=== PATIENT | female | born 1950 | race Caucasian/White ===

== ENCOUNTER → 2019-03-01 08:11 | Day surgery (SDC) | payer OTHER, MEDICARE ==
[~2019-03-01 08:11] MED LIST: Heparin 2 UNITS/ML IVPREMIX* 2,000 ML IV ONE; Heparin(*) 1000 UNIT/ML 10 ML VIAL CATH LAB IV ONE; Iohexol 350 (CONTRAST) 200 ML MDV IV ONE; Lidocaine 1% INJ* 10 MG/ML 30 ML SDV ONE; Midazolam* 1 MG/ML 5 ML VIAL (5 MG) ONE; NS 0.9% 1000 ML** 1,000 ML IV SCH; VERAPAMIL 2.5 MG/ML 2 ML VIAL ** 5 mg/2 ml ONE; fentaNYL* 50 MCG/ML 2 ML VIAL (100 MCG VIAL) ONE; nitroGLYCERIN DRIP* 25,000 MCG/250 ML BTL ONE
[2019-03-01 09:09] LABS: INR 0.97 (0.82-1.09)
[2019-03-01 09:10] LABS: BUN/Creatinine Ratio 16.7 (8-20); Calcium 10.1 mg/dL (8.6-10.3); EGFR African American 96.9 (>60); EGFR Non-African American 80.1 (>60); Potassium 3.9 mmol/L (3.5-5.0)
[2019-03-01 09:11] LABS: Hematocrit 35 % (35-47); Hemoglobin 11.5 g/dL (12.0-16.0); Mean Corpuscular HGB Conc 33 g/dL (31-36); Mean Corpuscular Hemoglobin 27 pg (27-31); Mean Corpuscular Volume 83 fL (80-97); Mean Platelet Volume 7.5 fL (7.4-10.4); Platelet Count 214 10^3/uL (150-450); Red Blood Count 4.18 10^6 /uL (3.70-4.87); Red Cell Distribution Width 22 % (10-15); White Blood Count 6.4 10^3/uL (3.5-10.8)
[2019-03-01 09:53] LABS: ABS Lymphocytes 1.4 10^3/ul (1.0-4.8); ABS Monocytes 0.6 10^3/ul (0-0.8); ABS Neutrophils 4.4 10^3/ul (1.5-7.7); Eosinophil % 0.7 %; Lymphocyte % 21.1 %
[2019-03-01 13:13] VITALS: BP 109/69
--- NOTE | 2019-03-01 14:36 | CATH ---
CC: Dr. Wandy Benitez at [facility], [address] [place] [address], [address] [address], fax number [phone] * CATHETERIZATION REPORT: ATE OF PROCEDURE: 03/01/19 - [facility] CATH PRIMARY CARE PROVIDER: Lorin Butler NP. CERTIFIED PROCEDURAL CODER: Dr. Goode. CARDIAC SURGEON: Dr. Wandy Benitez at [facility], [address] [place] [address], Suite -[facility], [place] [address], fax number . PROCEDURES: Right radial artery access with ultrasound guidance, bilateral selective coronary cineangiography, left heart catheterization, and left ventriculography. HISTORY: A 68-year-old woman with essentially asymptomatic, moderately severe mitral regurgitation and iron deficiency anemia. Referred for coronary angiography prior to potential mitral valve repair. PROCEDURE ACCESS: Right radial artery with ultrasound guidance, sheath 5- Danish Slender. Of note, the distal right radial artery had heavy intimal calcification, was however easily punctured a few centimeters more proximally. DIAGNOSTIC CATHETERS: 5F TIG4, 5F pigtail. MEDICATIONS: 1. Subcu lidocaine. 2. IV Versed. 3. IV fentanyl. 4. Heparin 3000 units. 5. Verapamil 3 mg. 6. Nitroglycerin 300 mcg IA. HEMODYNAMICS: AO 87/51, postcoronary angiography LV 103/11, no aortic valve gradient on pullback. ANGIOGRAPHY: There was mild resistance to passage of the J-wire in the radial artery, imaging showed just a small caliber radial artery, easily traversed with a Wholey wire. Left Main: The left main is relatively short, with visible calcification, but no stenosis. LAD: The LAD is moderate, extends to the apex, it supplies a moderate diagonal and a small distal diagonal, the LAD has no stenosis. Circumflex: The circumflex is not dominant, is moderate, with a large ramus branch, distally supplies a moderate posterolateral. The circumflex has no stenosis. RCA: The RCA is dominant, moderate, with a moderate PDA in small posterolateral , it has no angiographic stenosis. Incidentally noted is calcification in the inferior and left side of the mitral annulus. LV gram done in SWEDISH cranial 45 degree, 30 degree to better visualize the annulus shows a hypercontractile left ventricle without wall motion abnormality , estimated LVEF of 65%. There is moderately severe mitral regurgitation, again mitral annular calcification is noted in the inferior left and left side of the annulus. CONCLUSION: 1. No significant obstructive coronary artery disease. 2. Normal LV systolic function with moderately severe mitral regurgitation. 3. Mitral annular calcification as above. 4. Successful right radial artery access. [id number]/[facility] #: [id number] [facility] [place]
== END | disposition home or self-care (01) ==
LOC: CHICATH 08:11
PROVIDERS: ATTEND Internal Medicine Cardiovascular Disease
DX: I34.0 Nonrheumatic mitral (valve) insufficiency (principal); R94.39 Abnormal result of other cardiovascular function study; D50.9 Iron deficiency anemia, unspecified; I70.298 Other atherosclerosis of native arteries of extremities, other extremity; M81.0 Age-related osteoporosis without current pathological fracture; E78.00 Pure hypercholesterolemia, unspecified; I51.7 Cardiomegaly; Z87.891 Personal history of nicotine dependence
CPT/HCPCS: 36415; 80048; 85025; 85610; 93458; 99156; 99157; C1887; J1644; J2250; J3010